=== PATIENT | male | born 1960 | race African-American/Black ===

== ENCOUNTER 2024-05-16 07:42 | Day surgery (SDC) | payer MEDICARE, SELFPAY ==
[2024-05-14 10:38] VITALS: BMI 43.2
[2024-05-16 08:12] VITALS: BP 116/77; PULSE 83; RESP 18; TEMP 36.2; O2SAT 95
[2024-05-16 08:28] LABS: POC Glucose,Bedside 113 (70-110)
--- NOTE | 2024-05-16 08:48 | P.PNANES_ITS ---
[facility] Disclaimer: The information contained in this section may have been updated after the patient was seen, as this information can be updated by other users. Medical History GERD (gastroesophageal reflux disease) Asthma Personal history of adenomatous and serrated colon polyps Chronic ulcerative colitis Obstructive sleep apnea Type 2 diabetes mellitus Hyperlipidemia Hypertension Congestive heart failure Surgical History (Updated 05/16/24 @ 08:03 by Lazarus Alonso RN) No history of previous surgery Family History Other Cancer Coronary artery disease Diabetes Social History Smoking Status: Never smoker alcohol intake: never substance use type: denies use current occupational status: retired Travel in the last 8 weeks: None [facility] Anesthesia Checklist Patient Identification Patient Identification: Arm Band Structural Data Admitted From: Home Planned Operative Procedure/s: Colonoscopy Consent for Planned Operative Procedure(s) Verified: Yes Verified Documents: Surgical Consent and History and Physical NPO Status Verified Time NPO: 06:00 (finished prep) Additional verifications Anesthesia Reactions: No Airway Assessment Mallampati Score:: Class II C-Spine Mobility Assessed: Yes TMJ Mobility Assessed: Yes Dentition: Good Dentition Neurological Assessment Level of Consciousness: Awake, Alert and Appropriate Anesthesia Plan Anesthesia Risk discussed: Yes Anesthesia Plan: Verified ASA Class: III Anesthesia Type: MAC
[2024-05-16 09:15] VITALS: O2SAT 98
--- NOTE | 2024-05-16 09:25 | P.HP_ITS ---
History of Present Illness *Admission Date: 05/16/24 *Reason for visit:: Longstanding ulcerative colitis *History of present illness: Mr. Ceja is a 63-year-old gentleman who is here for surveillance colonoscopy secondary to ulcerative colitis and personal history of adenomatous polyps. The examination is deemed medically necessary for surveillance colonoscopy. The patient has been seen, interviewed and examined prior to the procedure by both myself and the anesthesia provider. [facility] Disclaimer: The information contained in this section may have been updated after the patient was seen, as this information can be updated by other users. Medical History GERD (gastroesophageal reflux disease) Asthma Personal history of adenomatous and serrated colon polyps Chronic ulcerative colitis Obstructive sleep apnea Type 2 diabetes mellitus Hyperlipidemia Hypertension Congestive heart failure Surgical History (Updated 05/16/24 @ 08:03 by Lazarus Alonso RN) No history of previous surgery Family History Other Cancer Coronary artery disease Diabetes Social History (Updated 05/16/24 @ 08:48 by Kurt Davidson CRNA) Smoking Status: Never smoker alcohol intake: never substance use type: denies use current occupational status: retired Travel in the last 8 weeks: None Have you lived/traveled outside [place] in past 30 days?: No Contact w/someone who lives/traveled outside US past 30 days?: No Exposure to someone with infectious disease in past 14 days?: No Do you have a fever (greater than 100.4 F or 38 C)?: No Have you tested positive for COVID-19: No Exposed to someone with COVID-19 in past 14 days?: No Do you have a sore throat?: No Do you have a cough?: No Do you have any weakness?: No Are you experiencing any nausea/vomitting?: No Do you have any diarrhea?: No Are you experiencing any unusual bleeding?: No Do you have any muscle aches/pain?: No Do you have any abdominal pain?: No Are you experiencing loss of taste or smell?: No Review of Systems Review of Systems Review of systems (narrative): Negative *Cardiovascular Comments: Negative *Gastrointestinal Comments: Negative *Genitourinary Comments: Negative *Musculoskeletal Comments: Negative *Neurologic Comments: Negative Meds Home Medications and Allergies Home Medications ?Medication ?Instructions ?Recorded ?Confirmed ?Type apixaban 5 mg tablet (Eliquis) 5 mg PO BID 02/21/24 05/16/24 History ascorbic acid (vitamin C) 1,000 mg 1 g PO Q6H 02/21/24 05/16/24 History capsule atorvastatin 40 mg tablet 40 mg PO DAILY 02/21/24 05/16/24 History balsalazide 750 mg capsule 750 mg PO DAILY 02/21/24 05/16/24 History (Colazal) carvedilol 25 mg tablet 25 mg PO BID 02/21/24 05/16/24 History cetirizine 10 mg capsule (Zyrtec) 10 mg PO DAILY 02/21/24 05/16/24 History cholecalciferol (vitamin D3) 50 50 mcg PO DAILY 02/21/24 05/16/24 History mcg (2,000 unit) capsule empagliflozin 10 mg tablet 10 mg PO DAILY 02/21/24 05/16/24 History (Jardiance) furosemide 40 mg tablet (Lasix) 40 mg PO DAILY PRN Fluid 02/21/24 05/16/24 History hydroxyzine HCl 25 mg tablet 25 mg PO BID 02/21/24 05/16/24 History mv-folic acid 200 mcg-D3 300 1 tab PO DAILY 02/21/24 05/16/24 History unit-K2 20 [id number] tablet (Stages Men's Multi-Vitamin) omeprazole 40 mg capsule,delayed 40 mg PO DAILY 02/21/24 05/16/24 History release semaglutide 0.25 mg or 0.5 mg (2 0.5 mg SQ WEEKLY 02/21/24 05/16/24 History mg/1.5 mL) subcutaneous pen injector (Ozempic) albuterol sulfate 90 mcg/actuation 1 inh inhalation Q4H PRN Asthma 05/16/24 05/16/24 History breath activated powder inhaler,sensor (Proair Digihaler) azithromycin 250 mg tablet 250 mg PO DAILY 05/16/24 05/16/24 History (Zithromax) doxycycline monohydrate 100 mg 100 mg PO BID 05/16/24 05/16/24 History capsule fluocinolone 0.025 % topical cream 1 applic topical BID 05/16/24 05/16/24 History furosemide 40 mg tablet 40 mg PO BID PRN Fluid 05/16/24 05/16/24 History methylprednisolone 4 mg tablets in 4 mg PO DAILY 05/16/24 05/16/24 History a dose pack (Medrol (Yusef)) montelukast 10 mg tablet 10 mg PO DAILY 05/16/24 05/16/24 History sacubitril 49 mg-valsartan 51 mg 1 tab PO BID 05/16/24 05/16/24 History tablet (Entresto) New Prescriptions to Start Prescriptions: Allergies Allergy/AdvReac Type Severity Reaction Status Date / Time No Known Allergies Allergy Verified 05/16/24 08:03 Exam Data for Last 24 hours Vital signs and Labs for Last 24 Hours: Temp Pulse Resp BP Pulse Ox O2 Del Method O2 Flow Rate 97.1 F L 83 18 116/77 95 Nasal Cannula 5 05/16/24 08:12 05/16/24 08:12 05/16/24 08:12 05/16/24 08:12 05/16/24 08:12 05/16/24 09:15 05/16/24 09:15 Laboratory Results - last 24 hr 05/16/24 08:18: POC Glucose 113 H I & O for Last 24 hours: Intake & Output 05/13/24 05/14/24 05/15/24 05/16/24 23:59 23:59 23:59 23:59 Weight 346 lb *Routine HEENT Exam Head: Present normocephalic Eye: Present EOMI and PERRL ENT: Present mucous membranes moist *Routine Neck Exam Neck: Present supple *Routine Respiratory Exam Respiratory: Present CTA bilaterally *Routine Cardiovascular Exam Cardiovascular: Present RRR *Routine Abdominal Exam Abdominal: Present soft and normoactive bowel sounds; Absent tenderness *Routine Rectal Exam Rectal:: deferred *Routine Genitalia Exam Genitalia:: deferred *Routine Extremities Exam Extremities: Absent cyanosis, clubbing or edema *Routine Skin Exam Skin: Present warm; Absent rash *Routine Neurological Exam Neurological: Present alert and oriented X3 Assessment and Plan *Assessment and plan (1) High grade dysplasia in colonic adenoma: Status: Acute Category: Medical Code(s): D12.6 - Benign neoplasm of colon, unspecified (2) Chronic ulcerative colitis: Status: Acute Category: Medical Code(s): K51.90 - Ulcerative colitis, unspecified, without complications (3) Personal history of adenomatous and serrated colon polyps: Status: Acute Category: Medical Code(s): Z86.0101 - Personal history of adenomatous and serrated colon polyps Plan A/P: 1. Adenomatous polyp with high-grade dysplasia as well as history of chronic ulcerative colitis and adenomatous polyps is the preprocedural diagnosis. The patient will be anesthetized/sedated using MAC sedation. The patient has been seen and examined. Cardiac and lung assessment prior to the examination is stable. Proceed with planned surveillance colonoscopy
--- NOTE | 2024-05-16 09:26 | P.PCN_ITS ---
[facility] Procedure Note Date: 05/16/24 Time: 09:43 Procedure Note:: Colonoscopy Procedure Report: Colonoscopy with cold snare polypectomy Endoscopist: Kaden Tilley II, MD Referring physician: Nheemiah Garza MD, [address] [place] [address] Date of Procedure: May 16, 2024 Equipment: Olympus 190 variable stiffness pediatric colonoscope Sedation: MAC sedation Indication: Mr. Ceja is a 63-year-old gentleman who is here for repeat surveillance colonoscopy. He does have chronic longstanding smoldering ulcerative colitis. Symptomatically, he has had mostly full control of symptoms and clinical remission with balsalazide. We have been performing biannual surveillance colonoscopy secondary to colon cancer risk. His colonoscopy in January 2021 revealed 3 polyps (small serrated adenoma x 1 and mucosal prolapse polyps x 2). His colonoscopy with [facility] in May 2023 showed 2 ascending polyps that were placed in the same formalin jar there were 5 and 7 mm. One was a tubular adenoma but the other one was a sessile serrated adenoma with focal h igh-grade dysplasia. He had 2 additional polyps (cecum tubular adenoma and descending hyperplastic polyp) removed. The patient reports no abdominal complaints. I did recommend repeat surveillance at 6 months and he did do this with Dr. Marcial Hurt on November 29, 2023. There was a 2 mm sessile polyp in the rectum which was removed and hyperplastic. Dr. Hurt recommended 5-year surveillance. The patient returns to [facility]. He has normal labs including normal alkaline phosphatase 92, ALT 17, hemoglobin 15.7 and hematocrit 48.8. Procedure: Prior to the procedure, a history and physical exam was performed, and patient's medications and allergies were reviewed. The risks, benefits and alternatives of the sedation and procedure were discussed with the patient. All questions were answered and informed consent was obtained. The patient was brought to the procedure room. Patient identification and proposed procedure were verified by the physician and the nurse. The patient was placed in a left lateral decubitus position and the scope was passed under direct vision. Throughout the procedure, the patient's blood pressure, pulse, and oxygen saturations were monitored continuously. The colonoscopy was accomplished without difficulty. The patient tolerated the procedure well. Findings: On digital rectal examination there was normal rectal tone. There were no external hemorrhoids. The colonoscope was introduced through the anal canal to the rectum and advanced to the cecum. The ileocecal valve and appendiceal orifice were identified. The scope was advanced a short distance into the ileum which appeared grossly normal. The scope was then withdrawn into the colon. There were only 2 small areas of focal flat polyp inflammatory or adenomatous change and narrowband imaging was utilized. Both of these areas were removed via cold snare polypectomy (ascending x 1 (11 to 12 mm) and transverse x 1 (8 to 9 mm)). The remaining cecum, ascending and transverse colon and mucosa were grossly normal with normal vascular pattern and no evidence of any active colitis. There were no inflammatory pseudopolyps. There were scattered diverticuli throughout the descending and sigmoid colon (LEFT colon). The rectum itself was normal. Upon retroflexion within the rectum there were grade 1 internal hemorrhoids. The preparation was fair to good throughout with Franklin Preparation Score of 7 out of 9. The cecal time was 18 minutes. Impression: 1. Flat adenomatous versus inflammatory polyps x 2 2. Left-sided diverticulosis 3. Grade 1 internal hemorrhoids Plan: I will follow-up the histology and recommend surveillance interval at 1 year. I would continue balsalazide and psyllium.
[2024-05-16 09:45] VITALS: BP 102/73; PULSE 91; RESP 16; TEMP 36.4; O2SAT 96
[2024-05-16 09:55] VITALS: BP 105/69; PULSE 98; RESP 16; O2SAT 95
[2024-05-16 10:05] VITALS: BP 124/92; PULSE 92; RESP 16; O2SAT 96
[2024-05-16 10:10] VITALS: BP 110/67; PULSE 99; RESP 16; O2SAT 96
== END 2024-05-16 10:15 | disposition home or self-care (01) ==
PROVIDERS: Visit Provider Internal Medicine Gastroenterology
PROC: 0DJD8ZZ Inspection of Lower Intestinal Tract, Via Natural or Artificial Opening Endoscopic (ICD-10-PCS; CPT 45378; principal; 2024-05-16 09:00)
DX: D12.6 Benign neoplasm of colon, unspecified (principal); K51.90 Ulcerative colitis, unspecified, without complications; Z86.0101 Personal history of adenomatous and serrated colon polyps; K63.5 Polyp of colon; K57.30 Diverticulosis of large intestine without perforation or abscess without bleeding; K64.0 First degree hemorrhoids; E11.9 Type 2 diabetes mellitus without complications; Z79.85 Long-term (current) use of injectable non-insulin antidiabetic drugs
CPT/HCPCS: 45385; 82962